=== PATIENT | female | born 1995 | race Hispanic/Latino ===

== ENCOUNTER 2017-11-17 01:54 | Emergency (ER) | payer SELFPAY ==
[2017-11-17 02:22] VITALS: TEMP 98
--- NOTE | 2017-11-17 02:47 | ED PDOC ---
HPI: Psych/Substance Abuse Time Seen by Provider: 11/17/17 02:00 Chief Complaint (Nursing): Alcohol Ingestion Chief Complaint (Provider): Alcohol Ingestion ED Caveat: Intoxicated History/Exam Limitations: intoxication Past Medical History Vital Signs: Last Vital Signs Temp 98 F 11/17/17 02:17 Pulse 112 H 11/17/17 02:17 Resp 16 11/17/17 02:17 BP 126/87 11/17/17 02:17 Pulse Ox 100 11/17/17 02:17 - Allergies Allergies/Adverse Reactions: Allergies Allergy/AdvReac Type Severity Reaction Status Date / Time Unobtainable Allergy Verified 11/17/17 02:16 Physical Exam - Physical Exam Head Exam: Positive for: NORMAL INSPECTION, NORMOCEPHALIC Skin: Positive for: Normal Color, Warm, Dry Eye Exam: Positive for: EOMI, Normal appearance, PERRL ENT: Positive for: Normal ENT Inspection Neck: Positive for: Normal, Painless ROM, Supple Cardiovascular/Chest: Positive for: Regular Rate, Rhythm. Negative for: Murmur Respiratory: Positive for: Normal Breath Sounds. Negative for: Accessory Muscle Use, Respiratory Distress Gastrointestinal/Abdominal: Positive for: Normal Exam, Bowel Sounds, Soft Back: Positive for: Normal Inspection Extremity: Positive for: Normal ROM. Negative for: Deformity Neurologic/Psych: Positive for: Alert, Oriented (x3) - ECG O2 Sat by Pulse Oximetry: 100 (RA) Pulse Ox Interpretation: Normal Disposition - Disposition Forms: [employer] (Arabic)
--- NOTE | 2017-11-17 02:52 | ED PDOC ---
HPI: Psych/Substance Abuse Time Seen by Provider: 11/17/17 02:00 Chief Complaint (Nursing): Alcohol Ingestion Chief Complaint (Provider): Alcohol Ingestion ED Caveat: Intoxicated History Per: EMS History/Exam Limitations: intoxication Additional Complaint(s): 22 y/o female was brought to the ED by [place] [employer] and EMS for alcohol intoxication and urinating in the street. Police were able to verify the patient 's name and date, however no other information is available at this time due to intoxication. Past Medical History Reviewed: Historical Data, Nursing Documentation, Vital Signs Vital Signs: Last Vital Signs Temp 98 F 11/17/17 02:17 Pulse 112 H 11/17/17 02:17 Resp 16 11/17/17 02:17 BP 126/87 11/17/17 02:17 Pulse Ox 100 11/17/17 02:17 - Family History Family History: States: Other Other Family History: unavailable due to patient intoxication - Allergies Allergies/Adverse Reactions: Allergies Allergy/AdvReac Type Severity Reaction Status Date / Time Unobtainable Allergy Verified 11/17/17 02:16 Review of Systems Review Of Systems: ROS cannot be obtained secondary to pt's inabilty to answer questions. (Cannot be obtained due to alcohol intoxication) Physical Exam - Reviewed Nursing Documentation Reviewed: Yes Vital Signs Reviewed: Yes - Physical Exam Appears: Positive for: Non-toxic, No Acute Distress Head Exam: Positive for: ATRAUMATIC, NORMOCEPHALIC Skin: Positive for: Warm, Dry Eye Exam: Positive for: EOMI, PERRL Neck: Positive for: Painless ROM, Supple Cardiovascular/Chest: Positive for: Regular Rate, Rhythm. Negative for: Murmur , Bradycardia, Tachycardia Respiratory: Positive for: Normal Breath Sounds. Negative for: Decreased Breath Sounds, Accessory Muscle Use, Respiratory Distress Gastrointestinal/Abdominal: Positive for: Soft. Negative for: Tenderness, Mass , Distended, Guarding Extremity: Positive for: Normal ROM. Negative for: Deformity Neurologic/Psych: Positive for: Alert (intoxicated), Other (patient noncooperative throughout examination) - ECG O2 Sat by Pulse Oximetry: 100 (RA) Pulse Ox Interpretation: Normal Medical Decision Making Medical Decision Making: Time: 02:34 Initial Impression: Alcohol Intoxication Plan: Alcohol Serum Accucheck 0400 ETOH serum 322 Accucheck 95 VSS, patient resting comfortably in bed. Pending clinical sobriety. 0545 VSS, patient resting comfortably in bed. Pending clinical sobriety. Continuation of care per Dr Pierce. Scribe Attestation: Documented by Luciana Franco acting as a scribe for PJ Marquez. Scribe Attestation: All medical record entries made by the Scribe were at my direction and personally dictated by me. I have reviewed the chart and agree that the record accurately reflects my personal performance of the history, physical exam, medical decision making, and the department course for this patient. I have also personally directed, reviewed, and agree with the discharge instructions and disposition. Disposition - Clinical Impression Clinical Impression: Alcohol use, Alcohol ingestion - Patient ED Disposition Is Patient to be Admitted: No Counseled Patient/Family Regarding: Diagnosis, Need For Followup - Disposition Referrals: [facility] [Provider Group] Disposition: Transfer of Care Disposition Time: 06:00 Condition: FAIR Instructions: Alcohol Use - When Is Drinking a Problem?, Alcohol Abuse and Alcoholism (DC) Forms: [employer] (Irish) Print Language: MALAY - POA Present On Arrival: None
--- NOTE | 2017-11-17 08:47 | ED PDOC ---
- ECG O2 Sat by Pulse Oximetry: 98 - Progress Re-evaluation Time: 08:46 Condition: Improved (Awake alert oriented x 3 No focal neuro deficits) Disposition - Clinical Impression Clinical Impression: Alcohol use, Alcohol ingestion - POA Present On Arrival: None - Disposition [facility]errals: [facility] [Provider [facility]] Disposition: Routine/Home Disposition Time: 08:47 Condition: FAIR Instructions: Alcohol Use - When Is Drinking a Problem?, Alcohol Abuse and Alcoholism (DC) Forms: [employer] (Burkinan) Print Language: JAPANESE
[2017-11-17 09:39] VITALS: BP 122/82; PULSE 88; RESP 18
[2017-11-19 12:48] VITALS: O2SAT 100
== END 2017-11-17 09:30 | disposition home or self-care (01) ==
LOC: H.ER 01:54 → EDBD 01:54 → H.ER 09:30
DX: F10.129 Alcohol abuse with intoxication, unspecified (principal)
CPT/HCPCS: 82948; 99283; G0480